=== PATIENT | female | born 1990 | race Caucasian/White ===

== ENCOUNTER 2016-11-28 10:41 | Emergency (ER) | payer BC, OTHER ==
[2016-11-28 10:54] VITALS: BP 97/61
--- NOTE | 2016-11-28 11:45 | UC ---
General HPI - HPI Summary HPI Summary: complaint of rash on her right leg that started approx 6 days ago clear papules filled with clear fluid that break open the itchiness has increased rash has spread to both of her legs using calamine lotion, bendryl cream, hydrocortisone cream with minimal relief denies fever - History of Current Complaint Chief Complaint: UCRas Stated Complaint: BUG BITE Time Seen by Provider: 11/28/16 11:13 Hx Obtained From: Patient - Allergy/Home Medications Allergies/Adverse Reactions: Allergies Allergy/AdvReac Type Severity Reaction Status Date / Time Tetracycline Allergy Nausea And Verified 11/28/16 10:54 Vomiting tetr Allergy Intermediate Nausea And Uncoded 11/28/16 10:54 Vomiting Home Medications: Home Medications NK [No Home Medications Reported] 11/28/16 [History Confirmed 11/28/16] PMH/Surg Hx/FS Hx/Imm Hx Previously Healthy: Yes Other History Of: Negative For: HIV, Hepatitis B, Hepatitis C - Surgical History Surgical History: Yes Surgery Procedure, Year, and Place: TONSILLECTOMY, SKIN LESION REMOVED - Family History Known Family History: Positive: Cardiac Disease Negative: Unknown, Diabetes - Social History Occupation: Employed Full-time Lives: With Family Alcohol Use: Weekly Substance Use Type: None Smoking Status (MU): Never Smoked Tobacco - Immunization History Most Recent Influenza Vaccination: has not had recently, in last few yrs Most Recent Tetanus Shot: doesnt remember, says current Most Recent Pneumonia Vaccination: never Review of Systems Constitutional: Negative Skin: Rash Eyes: Negative ENT: Negative Respiratory: Negative Cardiovascular: Negative Gastrointestinal: Negative Genitourinary: Negative Motor: Negative Neurovascular: Negative Musculoskeletal: Negative Neurological: Negative Psychological: Negative All Other Systems Reviewed And Are Negative: Yes Physical Exam Triage Information Reviewed: Yes Appearance: No Pain Distress, Well-Nourished Vital Signs: Initial Vital Signs Temp 98.1 F 11/28/16 10:48 Pulse 79 11/28/16 10:48 Resp 16 11/28/16 10:48 BP 97/61 11/28/16 10:48 Pulse Ox 100 11/28/16 10:48 Vital Signs Reviewed: Yes Eyes: Positive: Conjunctiva Clear ENT: Positive: Pharynx normal, TMs normal Neck: Positive: No Lymphadenopathy Respiratory: Positive: Lungs clear, Normal breath sounds, No respiratory distress, No accessory muscle use Cardiovascular: Positive: RRR, No Murmur, Pulses Normal Musculoskeletal Exam: Normal Neurological: Positive: Alert Psychological Exam: Normal Skin: Positive: rashes - BLE rash with erythematous areas with clear fluid filled papules Course/Dx - Course Course Of Treatment: exam completed. pt refuses streroid treatment. will use benadryl and technu soap - Differential Dx - Multi-Symptom Differential Diagnoses: Other - contact dermatitis, poison pamela, cellulitis Provider Diagnoses: contact dermatitis- poison pamela Discharge - Discharge Plan Condition: Stable Disposition: HOME Patient Education Materials: Poison Pamela (ED) Referrals: Ivy Hathaway MD [Primary Care Provider] - Additional Instructions: Please start bendryl 25 mg three times a day start using technu soap on the rash for 1-2 days continue to use anti-itch spray as needed Increase fluids and rest Take acetaminophen for pain Please review your discharge instructions. If your symptoms do not improve please call your primary care provider or return to urgent care.
== END 2016-11-28 12:39 | disposition home or self-care (01) ==
LOC: UCEAST 10:41
DX: L24.7 Irritant contact dermatitis due to plants, except food (principal); T63.791A Toxic effect of contact with other venomous plant, accidental (unintentional), initial encounter; Y92.9 Unspecified place or not applicable
CPT/HCPCS: 99211; G0463

== ENCOUNTER 2017-09-07 16:21 | Emergency (ER) | payer BC ==
[2017-09-07 16:37] VITALS: BP 104/66
--- NOTE | 2017-09-07 16:48 | UC ---
Complaint Female HPI - HPI Summary HPI Summary: Patient is 30 weeks and last couple days has had this need to urinate all the time no burning with urination just urgency and frequency. Also no fevers chills back pain nausea vomiting vaginal discharge usual movement - History Of Current Complaint Chief Complaint: UCGU Stated Complaint: BURNING URINATION Time Seen by Provider: 09/07/17 16:47 Hx Obtained From: Patient ?: Yes - 30 weeks Onset/Duration: Sudden Onset, Lasting Days - 2-3, Still Present Timing: Constant Severity Initially: Mild Severity Currently: Mild Pain Intensity: 4 Pain Scale Used: 0-10 Numeric - Allergies/Home Medications Allergies/Adverse Reactions: Allergies Allergy/AdvReac Type Severity Reaction Status Date / Time Tetracyclines Allergy Nausea And Verified 09/07/17 16:26 Vomiting Home Medications: Home Medications Calcium Carbonate [Calcium] 500 mg PO DAILY 09/07/17 [History Confirmed 09/07/17 ] Levothyroxine TAB* [Synthroid TAB*] 50 mcg PO DAILY 09/07/17 [History Confirmed 09/07/17] Blanchard-3 Fatty Acids/Fish Oil [Fish Oil 1,000 mg Capsule] 1 tab PO DAILY [History Confirmed 09/07/17] 21/Iron Fu/Folic Acid [ Complete Caplet] 1 tab PO DAILY [History Confirmed 09/07/17] PMH/Surg Hx/FS Hx/Imm Hx Previously Healthy: No Endocrine History: Hypothyroidism Other History Of: Negative For: HIV, Hepatitis B, Hepatitis C - Surgical History Surgical History: Yes Surgery Procedure, Year, and Place: TONSILLECTOMY, SKIN LESION REMOVED - Family History Known Family History: Positive: Cardiac Disease Negative: Unknown, Diabetes - Social History Occupation: Employed Full-time Lives: With Family Alcohol Use: None Substance Use Type: None Smoking Status (MU): Never Smoked Tobacco - Immunization History Most Recent Influenza Vaccination: has not had recently, in last few yrs Most Recent Tetanus Shot: doesnt remember, says current Most Recent Pneumonia Vaccination: never Review of Systems Constitutional: Negative Skin: Negative Eyes: Negative ENT: Negative Respiratory: Negative Cardiovascular: Negative Gastrointestinal: Negative Genitourinary: Frequency, Urgency Motor: Negative Neurovascular: Negative Musculoskeletal: Negative Neurological: Negative Psychological: Negative Is Patient Immunocompromised?: No All Other Systems Reviewed And Are Negative: Yes Physical Exam Triage Information Reviewed: Yes Appearance: Well-Appearing, No Pain Distress, Well-Nourished Vital Signs: Initial Vital Signs Temp 97.4 F 09/07/17 16:26 Pulse 83 09/07/17 16:26 Resp 19 09/07/17 16:26 BP 104/66 09/07/17 16:26 Pulse Ox 100 09/07/17 16:26 Vital Signs Reviewed: Yes Eye Exam: Normal Eyes: Positive: Conjunctiva Clear ENT Exam: Normal ENT: Positive: Normal ENT inspection, Hearing grossly normal. Negative: Trismus , Muffled voice, Hoarse voice Dental Exam: Normal Neck exam: Normal Neck: Positive: Supple, Nontender Respiratory Exam: Normal Respiratory: Positive: Chest non-tender, No respiratory distress, No accessory muscle use Cardiovascular Exam: Normal Cardiovascular: Positive: RRR, Pulses Normal, Brisk Capillary Refill Abdominal Exam: Normal Abdomen Description: Positive: Nontender, No Organomegaly, Soft. Negative: CVA Tenderness (R), CVA Tenderness (L) Bowel Sounds: Positive: Present Musculoskeletal Exam: Normal Musculoskeletal: Positive: Strength Intact, ROM Intact, No Edema Neurological Exam: Normal Neurological: Positive: Alert, Muscle Tone Normal Psychological Exam: Normal Skin Exam: Normal Diagnostics - Laboratory Diagnostic Studies Completed/Ordered: UA trace protein and trace ketones Complaint Female Dx - Course Course Of Treatment: Increase fluids rest follow with PCP as planned return for continuing or worsening symptoms - Differential Dx/Diagnosis Provider Diagnoses: Third trimester healthy female urinary urgency and frequency Discharge - Sign-Out/Discharge Documenting (check all that apply): Discharge - Discharge Plan Condition: Stable Disposition: HOME Patient Education Materials: at 31 to 34 Weeks (ED) Referrals: Ivy Hathaway MD [Primary Care Provider] - Additional Instructions: Follow with your OB doctor as planned. Return for any change in symptoms worsening symptoms or continuation of symptoms - Billing Disposition and Condition Condition: STABLE Disposition: HOME
== END 2017-09-07 17:22 | disposition home or self-care (01) ==
LOC: UCEAST 16:21
DX: O26.893 Other specified pregnancy related conditions, third trimester (principal); R39.15 Urgency of urination; R35.0 Frequency of micturition; Z3A.30 30 weeks gestation of pregnancy; E03.9 Hypothyroidism, unspecified; Z88.1 Allergy status to other antibiotic agents
CPT/HCPCS: 81003; 84702; 99211; G0463

== ENCOUNTER 2017-11-12 03:16 | Inpatient (IN) | payer BC, MEDICAID ==
[2017-11-12] MEDS ORDERED: Nalbuphine* 10 MG/ML 1 ML VIAL IV PRN (04:12)
[2017-11-12] MEDS ORDERED: Promethazine INJ(RESTRICTED)* 25 MG/ML 1 ML VIAL IV PRN (04:12)
[2017-11-12] MEDS ORDERED: Promethazine INJ(RESTRICTED)* 25 MG/ML 1 ML VIAL ONE (04:46)
[2017-11-12] MEDS ORDERED: Nalbuphine* 10 MG/ML 1 ML VIAL ONE (04:46)
[2017-11-12 05:28] LABS: ABS Basophils 0.1 10^3/ul (0-0.2); ABS Eosinophils 0 10^3/ul (0-0.6); ABS Lymphocytes 3.4 10^3/ul (1.0-4.8); ABS Monocytes 1.1 10^3/ul (0-0.8); ABS Nucleated RBC 0 10^3/ul; Eosinophil % 0.1 % (0-6); Hematocrit 44 % (35-47); Hemoglobin 14.9 g/dl (12.0-16.0); Lymphocyte % 29.4 % (25-47); Mean Corpuscular HGB Conc 34 g/dl (31-36); Mean Corpuscular Hemoglobin 33 pg (27-31); Mean Corpuscular Volume 98 fL (80-97); Mean Platelet Volume 11.7 um3 (7.4-10.4); Nucleated Red Blood Cells % 0.1; Platelet Count 143 10^3/ul (150-450); Red Blood Count 4.52 10^6/ul (4.00-5.40); Red Cell Distribution Width 16 % (10.5-15); White Blood Count 11.7 10^3/ul (3.5-10.8)
--- NOTE | 2017-11-12 07:30 | PN ---
L&D Outpatient: Visit - Reproductive Information Estimated Due Date: 11/18/17 Gestational Age: 39 Weeks and 1 Days : 1 - Reason for Visit Visit Reason: Uterine contractions, getting stronger, Q 5-7 min, lasting 30+ seconds. 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20 Hypothyroid on replacement L&D Outpatient: ROS - Review of Systems Constitutional: Uncomfortable CV Complaint: No Respiratory: Shortness of Breath: No Gastrointestinal: No Nausea/Vomiting, Normal Bowel Movement Genitourinary: Bleeding, No Dysuria, No Leaking Fluid Musculoskeletal: Contractions Movement: Normal L&D Outpatient: Exam Vitals - Most Recent: BP 116/91 T 96.8 HR 72 RR 18 Lab Values - Entire Visit: Laboratory Tests 11/12/17 11/12/17 04:50 04:50 WBC 11.7 H RBC 4.52 Hgb 14.9 Hct 44 MCV 98 H MCH 33 H MCHC 34 RDW 16 H Plt Count 143 L MPV 11.7 H Neut % (Auto) 60.3 Lymph % (Auto) 29.4 [place] % (Auto) 9.7 H Eos % (Auto) 0.1 Baso % (Auto) 0.5 Absolute Neuts (auto) 7.0 Absolute Lymphs (auto) 3.4 Absolute Monos (auto) 1.1 H Absolute Eos (auto) 0 Absolute Basos (auto) 0.1 Absolute Nucleated RBC 0 Nucleated RBC % 0.1 Blood Type A Positive Antibody Screen Negative - Cervical Exam Cervical Exam: 2-3cm/70%/vertex -1 - Abdominal Exam Abdomen Exam: Non-Tender, Fundal Height Consistent with Dates - Membranes Membrane Status: Intact - Ultrasound/Biophysical Profile Ultrasound Status: Bedside Exam Ultrasound Findings: Vertex position confirmed L&D Outpatient: EFM - External Monitor Findings Baseline Heart Rate: 130 External Monitor Findings: Accelerations Present, Variability Moderate, Variable or Late Deceleration Pattern Present - Variable decels with most contractions, some improvement with position changes L&D Outpatient: Asses/Plan Assessment: IUP @ 39+1 weeks gestation in early vs prodromal labor. IBOW. FHT shows pattern of variable decelerations with most contractions. Pt desires therapeutic rest with Nubain/phenergan and will continue to monitor - Discharge Diagnosis Discharge Diagnosis: Other - Early labor Plan: Follow Up: - Observe for active labor. Consider discharge home if no change. Report given to oncesther tax compliance agentJacobo.
--- NOTE | 2017-11-12 11:14 | PN ---
Progress Note - Progress Note Date of Service: 11/12/17 SOAP: Subjective: [Pt slept "well" overnight after receiving Nubain and Phenergan. Still feeling sleepy. Reports painful ctx, but more spaced out. Feels "a little" movement. ] Objective: [Cervical exam: 2-3cm 80%/ -1 FHR:130, mod variability, no accels, recurrent early and variable decels VSS Ctx:4-5 minutes, 40-60 seconds, mild to moderate strength ] Assessment: [ at 39 1/7 weeks gestation in early vs prodromal labor CatII FHR tracing] Plan: [Continuous EFM IV bolus 1L LR]
[2017-11-12] MEDS ORDERED: Ondansetron INJ* 2 MG/ML VIAL IV PRN (12:44)
--- NOTE | 2017-11-12 13:17 | RAD ---
Indication: Suspected intrauterine growth restriction. Provided history of estimated 39 weeks 1 day gestation. LMP February 11, 2017. Comparison: No relevant prior exams available on the [facility] PACS for comparison. Technique: Limited transabdominal obstetrical ultrasound. Amniotic fluid volume (REYNA), breathing movements, movements, and tone assessed. Report: Single intrauterine fetus is in cephalic presentation. Spontaneous motion and cardiac activity present. heart rate: 135 bpm. The volume of amniotic fluid is qualitatively low. Amniotic fluid index is 4.0 cm. (Normal range 5-25 cm) The cervical length is 4.0 cm. Anterior placenta without evidence for placenta previa. Mean BPD: 9.1 cm corresponding to 37 weeks 0 days gestation Mean HC: 32.6 cm corresponding to 37 weeks 0 days gestationn Mean AC: 29.7 cm corresponding to 33 weeks 5 days Mean FL: 7.2 cm corresponding to 36 weeks 6 days Composite gestational age: 36 weeks 1 day. Estimated weight is 2628 g +/- 384 g. Reference images 20-22 there is immobile 0.4 cm echogenic structure within the gallbladder with only equivocal posterior acoustic shadowing. No gross evidence for biliary dilatation. 2 points were given for each of the following: amniotic fluid, movements, and tone. Negative for observed sufficient breathing movements resulting in score of 0. IMPRESSION: 1. Biophysical profile score 6/8. 2. Oligohydramnios. 3. Sludge ball versus less likely gallstone at the gallbladder. 4. Composite gestational age based on this exam is only 36 weeks 1 day. 5. Estimated weight is 2628 g +/- 384 g.
[2017-11-12] MEDS ORDERED: Oxytocin in LR* 20 UNITS/1,000 ML BAG IVPB SCH (15:00)
[2017-11-12] MEDS ORDERED: OBEPIDURAL* 250 ML EPIDURAL ONE (17:15)
[2017-11-12] MEDS ORDERED: fentaNYL* 50 MCG/ML 2 ML VIAL (100 MCG VIAL) ONE (17:26)
[2017-11-12] MEDS ORDERED: Famotidine TAB* 20 MG PO PRN (17:58)
[2017-11-12] MEDS ORDERED: Phenylephrine IV* 40 MCG/ML 10 ML SYRINGE IV PUSH PRN ×2 (17:58)
[2017-11-12] MEDS ORDERED: Sodium Citrate/Citric Acid* 15 ML UDC PO PRN (17:58)
[2017-11-12] MEDS ORDERED: OBEPIDURAL* 250 ML EPIDURAL SCH (18:00)
--- NOTE | 2017-11-12 20:40 | HP ---
General Information - General Information Maternal Age: 27 Grav: 1 Para: 0 SAB: 0 IEA: 0 Estimated Due Date: 11/18/17 Determined By: LMP Gestational Age in Weeks and Days: 39 Weeks and 1 Days Maternal Blood Type and Rh: A Positive - Results this Serology/RPR Result: Non-Reactive Rubella Result: Immune HBsAg Result: Negative HIV Result: Negative GBS Culture Result: Negative Past Medical History Delivery History: See Records - primiparous Pertinent Past Medical History: See Records - depression/ anxiety, OCD , hypothyroidism Pertinent Past Surgical History: See Records - tonsillectomy, excision hairy nevus Pertinent Family History: See Records - depression, breast cancer, [place] - Antepartal Records Antepartal Records: Reviewed, Complicated by: - depression, hypothyroidism, S<D Review of Systems Constitutional: Uncomfortable CV Complaint: No Respiratory: Shortness of Breath: No Gastrointestinal: No Nausea/Vomiting, Normal Bowel Movement Genitourinary: No Dysuria, No Bleeding, No Leaking Fluid Musculoskeletal: Contractions Neurological: No Headache, No Visual Changes Movement: Normal Exam Allergies/Adverse Reactions: Allergies Tetracyclines Allergy (Verified 11/12/17 08:43) Nausea And Vomiting 129/90, T-99.6, R-18, P-78 Lab Values - Entire Visit: Laboratory Tests 11/12/17 11/12/17 04:50 04:50 WBC 11.7 H RBC 4.52 Hgb 14.9 Hct 44 MCV 98 H MCH 33 H MCHC 34 RDW 16 H Plt Count 143 L MPV 11.7 H Neut % (Auto) 60.3 Lymph % (Auto) 29.4 [place] % (Auto) 9.7 H Eos % (Auto) 0.1 Baso % (Auto) 0.5 Absolute Neuts (auto) 7.0 Absolute Lymphs (auto) 3.4 Absolute Monos (auto) 1.1 H Absolute Eos (auto) 0 Absolute Basos (auto) 0.1 Absolute Nucleated RBC 0 Nucleated RBC % 0.1 Blood Type A Positive Antibody Screen Negative - Measurements Height: 5 ft 3 in Weight: 63.049 kg Weight in lbs: 139.444012 Body Mass Index (BMI): 24.6 Pre- Weight: 54.431 kg Weight Gained This : 19 lbs and 0 ozs - Exam Abdomen: No Upper Quadrant Pain Breast: Breast Exam Deferred CVA: No CVA Tenderness Extremities: No Edema Heart: Normal Rhythm/Heart Sounds HEENT: No Significant Findings Lungs: Clear Bilaterally Rectal: Rectal Exam Deferred Reflexes: DTR 2+ Thyroid: No Thyromegaly - Abdominal Exam Abdomen Exam: Non-Tender Abdomen Exam Comment: S<D - Ultrasound/Biophysical Profile Ultrasound Status: Radiology Department Full Exam Biophysical Profile: Normal Amniotic Fluid, Normal Gross Body Movements, Normal Muscle Tone, Abnormal Breathing, Abnormal Reactive NST Targeted Exam Findings See L&D Outpatient Visit Provider Note for Findings: N/A Estimated Weight: 6# Cervical Exam: 8cm Effacement: 100% Station: 0 Presenting Part: Vertex Membrane Status: SROM Amniotic Fluid Evaluation: Clear Bleeding/Discharge: Bloody Show EFM Findings - External Monitor Findings Baseline Heart Rate: 140 External Monitor Findings: Baseline Stable, Accelerations Absent, Variability Minimal, Variable or Late Deceleration Pattern Present Contractions: Strong, 45-90 Seconds Contraction Frequency: 2-5 Assessment/Plan - Reason for Visit Reason for Visit: Pt was seen for evaluation of labor last night, kept on outpt status and provided with therapeutic rest. Today, pt found to still have Cat 2 tracing, BPP 6/8, s<d. Pt admitted and initiated IOL at that time. - Plan Plan: Induction - Date/Time of Admission Date of Admission: 11/12/17 Time of Admission: 14:28
[2017-11-13] MEDS ORDERED: Glycerin ADULT SUPP PR PRN (00:43)
[2017-11-13] MEDS ORDERED: Acetaminophen TAB* 325 MG PO PRN (00:43)
[2017-11-13] MEDS: Ibuprofen TAB* 600 MG PO PRN ×3 (01:49→20:55)
[2017-11-13] MEDS: Witch Hazel PAD* JAR TOPICAL PRN (01:50)
[2017-11-13] MEDS: Dibucaine 1% 28.35 GM TUBE PR PRN ×2 (01:50→20:56)
--- NOTE | 2017-11-13 08:25 | PROCNOTE ---
[facility] OB: Delivery Note - Delivery A Date of : 11/12/17 Gestational Age in Weeks and Days at Delivery: 39 Weeks and 1 Days Delivery Method: Spontaneous Vaginal Labor: Spontaneous Did Patient attempt ?: N/A, No Previous Amniotic Fluid: Clear Anesthesia/Analgesia: CEI for Labor Delivered By: Dawna Flores - Nursery Level of Nursery: Regular/Bedside - Perineum Perineal Injury: Right Mediolateral, 3rd Degree Extension Perineal Injury Comment: episiotomy Perineal Repair: by Dr. Mercado - Events Delivery Events of Note: Pitocin During Labor, Supplemental O2 to Mother Delivery Events of Note Comment: resuscitation - Additional Delivery Notes Additional Delivery Notes: Pt came to unit in prodromal labor, received therapeutic rest and slept overnight. FHR tracing Cat II with periods of minimal variability and frequent small variable decels with ctx. Pt given IV hydration. BPP was 6/8 with oligohydramnios noted. Pt admitted at that time for IOL. IOL initiated with Pitocin with good pt response. Pt progressed to 6-7 cm dilation at which time she requested and received an epidural. Pushing efforts began when pt felt urge to push, with good pt effort. FHR tracing continued to demonstrate variable decels with ctx. Pt was pushing with good effort. Right mediolateral episiotomy performed by Dr. Mercado and pt delivered at next push. Infant was floppy without respiratory efforts, so cord clamped and cut and transferred to warmer. Dr. Mercado and LIFT DRIVER Analilia Sosa initiated resuscitation efforts and notified neonatology. Apgars were: 1"-2, 5"-6, 10"-7, 20"-9. Resuscitation included PPV and IV fluid bolus. Infant's heart rate was normal throughout. After infant evaluated by neonatology, he was placed at mother's breast and began nursing vigorously. During resuscitation, pt delivered placenta, Mariah side. Fundus firm, bleeding well controlled, Pitocin infusing via IV. Mediolateral episiotomy with partial 3rd degree extension repaired by Dr. Mercado. At this time, mother and baby stable, rooming in with mother and being followed by Peds.
[2017-11-13] MEDS: Docusate CAP* 100 MG PO SCH ×3 (09:00→20:56)
[2017-11-14] MEDS: Ibuprofen TAB* 600 MG PO PRN ×3 (05:59→18:00)
[2017-11-14 07:51] LABS: ABS Basophils 0.1 10^3/ul (0-0.2); ABS Eosinophils 0 10^3/ul (0-0.6); ABS Lymphocytes 4.1 10^3/ul (1.0-4.8); ABS Monocytes 1.2 10^3/ul (0-0.8); ABS Neutrophils 9.5 10^3/ul (1.5-7.7); ABS Nucleated RBC 0 10^3/ul; Eosinophil % 0.2 % (0-6); Hematocrit 33 % (35-47); Hemoglobin 11.5 g/dl (12.0-16.0); Lymphocyte % 27.9 % (25-47); Mean Corpuscular HGB Conc 35 g/dl (31-36); Mean Corpuscular Hemoglobin 34 pg (27-31); Mean Corpuscular Volume 98 fL (80-97); Mean Platelet Volume 11.1 um3 (7.4-10.4); Nucleated Red Blood Cells % 0; Platelet Count 125 10^3/ul (150-450); Red Cell Distribution Width 17 % (10.5-15); White Blood Count 14.9 10^3/ul (3.5-10.8)
[2017-11-14] MEDS ORDERED: Ferrous Gluconate TAB* 324 MG TAB PO SCH (09:00)
[2017-11-14] MEDS: Docusate CAP* 100 MG PO SCH ×3 (09:50→20:45)
--- NOTE | 2017-11-14 16:07 | PTEDU ---
Patient Name: LINDSAY JAVIER LINDSAY JAVIER selected video: Follow Me Mum: [facility] [place] [facility] Successful to view on 11/14/2017 at 4:06:01 PM [id number]
[2017-11-14] MEDS: Witch Hazel PAD* JAR TOPICAL PRN (18:40)
[2017-11-15] MEDS: Ibuprofen TAB* 600 MG PO PRN (04:01)
[2017-11-15] MEDS: Docusate CAP* 100 MG PO SCH (07:59)
[2017-11-15] MEDS: Dibucaine 1% 28.35 GM TUBE PR PRN (08:00)
[2017-11-15 09:01] VITALS: BP 117/75
== END 2017-11-15 12:57 | disposition home or self-care (01) | DRG 560 ==
LOC: MCHOBOUT 03:16 → MCHOB 14:28
PROVIDERS: ADMIT Midwife; ATTEND Midwife
PROC: 10E0XZZ Delivery of Products of Conception, External Approach (ICD-10-PCS; principal; 2017-11-12)
PROC: 10907ZC Drainage of Amniotic Fluid, Therapeutic from Products of Conception, Via Natural or Artificial Opening (ICD-10-PCS; 2017-11-12)
PROC: 0W8NXZZ Division of Female Perineum, External Approach (ICD-10-PCS; 2017-11-12)
PROC: 0KQM0ZZ Repair Perineum Muscle, Open Approach (ICD-10-PCS; 2017-11-12)
PROC: 4A1HXCZ Monitoring of Products of Conception, Cardiac Rate, External Approach (ICD-10-PCS; 2017-11-12)
PROC: 3E033VJ Introduction of Other Hormone into Peripheral Vein, Percutaneous Approach (ICD-10-PCS; 2017-11-12)
DX: O41.03X0 Oligohydramnios, third trimester, not applicable or unspecified (principal); O90.2 Hematoma of obstetric wound; O47.1 False labor at or after 37 completed weeks of gestation; O99.284 Endocrine, nutritional and metabolic diseases complicating childbirth; E03.9 Hypothyroidism, unspecified; Z3A.39 39 weeks gestation of pregnancy; Z37.0 Single live birth; O99.344 Other mental disorders complicating childbirth; F32.9 Major depressive disorder, single episode, unspecified; F41.9 Anxiety disorder, unspecified; Z88.1 Allergy status to other antibiotic agents; O76 Abnormality in fetal heart rate and rhythm complicating labor and delivery; O70.1 Second degree perineal laceration during delivery; O36.5930 Maternal care for other known or suspected poor fetal growth, third trimester, not applicable or unspecified; F42.9 Obsessive-compulsive disorder, unspecified; O43.893 Other placental disorders, third trimester
CPT/HCPCS: 36415; 76819; 85025; 86850; 86900; 86901; A9270-GY; J2300; J2550; J3010

== ENCOUNTER 2018-01-24 08:45 | Emergency (ER) | payer BC, MEDICAID ==
[2018-01-24 09:01] VITALS: BP 86/56
--- NOTE | 2018-01-24 09:37 | UC ---
Lower Extremity/Ankle HPI - HPI Summary HPI Summary: This patient is a 27 year old F presenting [place] [facility] [place] a chief complaint of an aching and burning bug bite to the left ankle since 3 days ago. The patient rates the pain 6/10 in severity. Patient reports itchiness. - History of Current Complaint Chief Complaint: UCSkin Stated Complaint: BUG BITE Time Seen by Provider: 01/24/18 09:30 Hx Obtained From: Patient Hx Last Menstrual Period: del 11/12/17 Onset/Duration: Sudden Onset, Lasting Days - 3 days ago, Still Present Severity Initially: Moderate Severity Currently: Moderate Pain Intensity: 6 Pain Scale Used: 0-10 Numeric Aggravating Factor(s): Ambulation Able to Bear Weight: Yes - Allergies/Home Medications Allergies/Adverse Reactions: Allergies Allergy/AdvReac Type Severity Reaction Status Date / Time Tetracyclines Allergy Nausea And Verified 01/24/18 09:01 Vomiting PMH/Surg Hx/FS Hx/Imm Hx Endocrine History: Diabetes - Denies Respiratory History: Asthma - Denies Other History Of: Negative For: HIV, Hepatitis B, Hepatitis C - Surgical History Surgical History: Yes Surgery Procedure, Year, and Place: TONSILLECTOMY, SKIN LESION REMOVED - Family History Known Family History: Positive: Cardiac Disease, Other - Thyroid problems Negative: Unknown, Diabetes - Social History Occupation: Employed Full-time Lives: With Family Alcohol Use: Rare Substance Use Type: None Smoking Status (MU): Never Smoked Tobacco - Immunization History Most Recent Influenza Vaccination: 05/04/17 Most Recent Tetanus Shot: doesnt remember, says current Most Recent Pneumonia Vaccination: unknown Review of Systems Constitutional: Fever - Denies Skin: Other - Bug bite to left ankle causing itchiness and pain over left ankle All Other Systems Reviewed And Are Negative: Yes Physical Exam - Summary Physical Exam Summary: VITAL SIGNS: Reviewed. GENERAL: Patient is a well-developed and nourished FEMALE who is lying comfortable in the stretcher. Patient is not in any acute respiratory distress. HEAD AND FACE: Normocephalic EYES: PERRLA, EOMI x 2. EARS: Hearing grossly intact. MOUTH: Oropharynx within normal limits. NECK: Supple, trachea is midline, no adenopathy, no JVD, no carotid bruit. CHEST: Symmetric, no tenderness at palpation LUNGS: Clear to auscultation bilaterally. No wheezing or crackles. CVS: Regular rate and rhythm, S1 and S2 present, no murmurs or gallops appreciated. ABDOMEN: Soft, non-tender. Bowel sounds are normal. No abdominal abnormal pulsations. EXTREMITIES: Full ROM in all major joints, Erythematous area on left ankle, slightly tender NEURO: Alert and oriented x 3. No acute neurological deficits. Speech is normal and follows commands. SKIN: Dry and warm Triage Information Reviewed: Yes Vital Signs: Initial Vital Signs Temp 97.6 F 01/24/18 08:57 Pulse 84 01/24/18 08:57 Resp 16 01/24/18 08:57 BP 86/56 01/24/18 08:57 Pulse Ox 100 01/24/18 08:57 Vital Signs Reviewed: Yes Lower Extremity Course/Dx - Course Course Of Treatment: Patient is a 27-year-old female who presents to the urgent care with chief complaint of having an insect bite in the left lower leg and left ankle. Patient reports that it is itchy and is slightly spreading. She declined antibiotics for the cellulitis however she will take topical antibiotics and topical Benadryl. She was advised to return to the urgent care if the symptoms get worse. If the cellulitis increases she may need by mouth antibiotics and she agrees. She was given one trial of the topical antibiotics at this time. Patient is hemodynamically stable alert and oriented 3. - Differential Dx/Diagnosis Provider Diagnoses: Insect bite Discharge - Sign-Out/Discharge Documenting (check all that apply): Patient Departure - D/C All imaging exams completed and their final reports reviewed: No Studies - Discharge Plan Condition: Stable Disposition: HOME Patient Education Materials: Insect Bite or Sting (ED) Referrals: [facility] PHYSICIAN REFERRAL [Outside] No Primary Care Phys,NOPCP [Primary Care Provider] - Additional Instructions: Take Acetaminophen or ibuprofen for pain or fever Increase your fluid intake Return to the or go to the emergency department if symptoms worsen Follow-up with primary care physician in next 2-3 days - Billing Disposition and Condition Condition: STABLE Disposition: Home - Attestation Statements Document Initiated by Scribe: Yes Documenting Scribe: Ron Waite Provider For Whom Scribe is Documenting (Include Credential): Juventino Quintana MD Scribe Attestation: Ron Grimaldo scribed for Juventino Quintana MD on 01/25/18 at 2130. Scribe Documentation Reviewed: Yes Provider Attestation: The documentation as recorded by the scribeRon accurately reflects the service I personally performed and the decisions made by me, Juventino Quintana MD
== END 2018-01-24 09:40 | disposition home or self-care (01) ==
LOC: UCEAST 08:45
DX: S90.562A Insect bite (nonvenomous), left ankle, initial encounter (principal); W57.XXXA Bitten or stung by nonvenomous insect and other nonvenomous arthropods, initial encounter; Y93.9 Activity, unspecified; Y92.9 Unspecified place or not applicable; Z88.1 Allergy status to other antibiotic agents
CPT/HCPCS: 99211; G0463

== ENCOUNTER 2018-03-23 18:34 | Emergency (ER) | payer BC, MEDICAID ==
[2018-03-23 19:20] VITALS: BP 102/63
[2018-03-23] MEDS ORDERED: Silver Sulfadiazine 1% 400gm* 1 APPLIC JAR TOPICAL ONE (19:41)
[2018-03-23] MEDS ORDERED: Silver Sulfadiazine 1%* 20 GM ONE (19:42)
[2018-03-23] MEDS ORDERED: Tetan/Diph/Pertus SYR(Tdap)* 0.5 ML SYR(BOOSTRIX) use SYR IM ONE ×2 (19:49→19:51)
--- NOTE | 2018-03-23 19:49 | UC ---
Skin Complaint HPI - HPI Summary HPI Summary: 27 yo WF p/w 2nd degree burn to left forearm while cooking soup, burnt it via steam. Has couple of blisters, with reddish area of burn on left forearm. - History of Current Complaint Chief Complaint: UCSkin Time Seen by Provider: 03/23/18 19:33 Stated Complaint: BURNED ON WRIST Hx Obtained From: Patient Hx Last Menstrual Period: 02/17/2017 Onset/Duration: Sudden Onset Skin Exposure Onset/Duration: Hours Ago Onset Severity: Moderate Current Severity: Severe Pain Intensity: 8 - Allergy/Home Medications Allergies/Adverse Reactions: Allergies Allergy/AdvReac Type Severity Reaction Status Date / Time Tetracyclines Allergy Nausea And Verified 01/24/18 09:01 Vomiting Home Medications: Home Medications Sertraline HCl [Zoloft] 03/23/18 [History] Review of Systems Constitutional: Negative Skin: Other - burn on left forearm Eyes: Negative ENT: Negative Respiratory: Negative Cardiovascular: Negative Gastrointestinal: Negative Genitourinary: Negative Motor: Negative Neurovascular: Negative Musculoskeletal: Negative Neurological: Negative Psychological: Negative Is Patient Immunocompromised?: Yes All Other Systems Reviewed And Are Negative: Yes PMH/Surg Hx/FS Hx/Imm Hx Previously Healthy: Yes Other History Of: Negative For: HIV, Hepatitis B, Hepatitis C - Surgical History Surgical History: Yes Surgery Procedure, Year, and Place: TONSILLECTOMY, SKIN LESION REMOVED - Family History Known Family History: Positive: Cardiac Disease, Other - Thyroid problems Negative: Unknown, Diabetes - Social History Alcohol Use: Rare Substance Use Type: None Smoking Status (MU): Never Smoked Tobacco - Immunization History Most Recent Influenza Vaccination: 05/04/17 Most Recent Tetanus Shot: doesnt remember, says current Most Recent Pneumonia Vaccination: unknown Physical Exam - Summary Physical Exam Summary: Vital Signs Reviewed: Yes Appearance: Positive: Well-Appearing Skin: Positive: area of burn on Left flexor surface of forearm 4x5cm with small burn blisters Head/Face: Positive: Normal Head/Face Inspection Eyes: Positive: EOMI, CHARLES ENT: Positive: Hearing grossly normal, Pharynx normal, TMs normal Neck: Positive: Supple, No Lymphadenopathy Respiratory/Lung Sounds: Positive: Clear to Auscultation Cardiovascular: Positive: RRR, S1, S2 Abdomen Description: Positive: Nontender, Soft Bowel Sounds: Positive: Present Musculoskeletal: Positive: Normal Neurological: Positive: CN Intact II-III Psychiatric:Positive: Normal Vital Signs: Initial Vital Signs Temp 36.7 C 03/23/18 19:12 Pulse 81 03/23/18 19:12 Resp 16 03/23/18 19:12 BP 102/63 03/23/18 19:12 Pulse Ox 98 03/23/18 19:12 Course/Dx - Course Course Of Treatment: woundcare provided, Tdap booster done - Diagnoses Provider Diagnoses: 2nd degree burn on left forearm Discharge - Sign-Out/Discharge Documenting (check all that apply): Patient Departure All imaging exams completed and their final reports reviewed: No Studies - Discharge Plan Condition: Stable Disposition: HOME Patient Education Materials: Second Degree Burn (ED), Acute Wound Care (ED) Referrals: Ivy Hathaway MD [Primary Care Provider] - Additional Instructions: return to clinic in 2 days for a wound check - Billing Disposition and Condition Condition: STABLE Disposition: Home
== END 2018-03-23 20:02 | disposition home or self-care (01) ==
LOC: UCEAST 18:34
DX: T22.212A Burn of second degree of left forearm, initial encounter (principal); Z88.1 Allergy status to other antibiotic agents; X13.1XXA Other contact with steam and other hot vapors, initial encounter; Y93.G3 Activity, cooking and baking; Y92.9 Unspecified place or not applicable
CPT/HCPCS: 90471; 90715; 99212; A9270-GY; G0463

== ENCOUNTER 2020-10-03 21:06 | Inpatient (IN) ==
[2020-10-03] MEDS ORDERED: Witch Hazel PAD JAR TOPICAL PRN (23:29)
[2020-10-03] MEDS ORDERED: Dibucaine 1% OINT 28.35 GM TUBE PR PRN (23:29)
[2020-10-03] MEDS ORDERED: Oxytocin 10 UNITS/ML 1 ML VIAL IM ONE (23:29)
[2020-10-03] MEDS ORDERED: Lactated Ringers 1000 ml BAG 1,000 ML IV SCH (23:45)
[2020-10-04] MEDS ORDERED: Lidocaine 1% VIAL 10 MG/ML VIAL ONE (00:18)
[2020-10-04 07:29] LABS: Urine Benzodiazepine Screen None Detected (None Detect); Urine Cannabinoids Screen None Detected (None Detect); Urine Opiates Screen None Detected (None Detect)
[2020-10-04 07:56] LABS: Hematocrit 26 % (35-47); Hemoglobin 8.2 g/dL (12.0-16.0); Mean Corpuscular HGB Conc 31 g/dL (31-36); Mean Corpuscular Hemoglobin 22 pg (27-31); Mean Corpuscular Volume 71 fL (80-97); Mean Platelet Volume 9.7 fL (7.4-10.4); Platelet Count 219 10^3/uL (150-450); Red Blood Count 3.72 10^6 /uL (3.70-4.87); Red Cell Distribution Width 19 % (10-15)
[2020-10-04 08:43] LABS: Microcytosis 2+; Polychromasia 1+
[2020-10-04 08:44] LABS: ABS Basophils 0.1 10^3/ul (0-0.2); ABS Lymphocytes 2.6 10^3/ul (1.0-4.8); ABS Monocytes 1.6 10^3/ul (0-0.8); Eosinophil % 0.2 %; Lymphocyte % 13.5 %; Nucleated Red Blood Cells % 0.1; White Blood Count 19.4 10^3/uL (3.5-10.8)
[2020-10-05 09:52] VITALS: BP 104/67
== END 2020-10-05 18:32 | disposition home or self-care (01) | DRG 560 ==
LOC: MCHOBOUT 21:06 → MCHOB 21:24
PROVIDERS: ADMIT Midwife; ATTEND Midwife